=== PATIENT | male | born 1970 | race Caucasian/White ===

== ENCOUNTER 2017-11-08 15:01 | Emergency (ER) | payer SELFPAY ==
--- NOTE | 2017-11-08 16:07 | EDM.PDOC ---
ED HPI GENERAL MEDICAL PROBLEM - General Chief Complaint: Lower Extremity Injury/Pain Stated Complaint: PAIN LT FOOT Time Seen by Provider: 11/08/17 15:08 Source of Information: Reports: Patient History Limitations: Reports: No Limitations - History of Present Illness INITIAL COMMENTS - FREE TEXT/NARRATIVE: History of present illness: []Patient's had 6 month history of left ankle and heel pain. He denies any trauma but states his pain is worsening. Patient denies any redness the skin or fevers. Review of systems: As per history of present illness and below otherwise all systems reviewed and negative. Past medical history: As per history of present illness and as reviewed below otherwise noncontributory. Surgical history: As per history of present illness and as reviewed below otherwise noncontributory. Social history: No reported history of drug or alcohol abuse. Family history: As per history of present illness and as reviewed below otherwise noncontributory. Physical exam: General: Well developed, well nourished in NAD HEENT: Atraumatic, normocephalic, pupils reactive, negative for conjunctival pallor or scleral icterus, mucous membranes moist, throat clear, neck supple, nontender, trachea midline. Lungs: Clear to auscultation, breath sounds equal bilaterally, chest nontender. Heart: S1S2, regular, negative for clicks, rubs, or JVD. Abdomen: Soft, nondistended, nontender. Negative for masses or hepatosplenomegaly. Negative for costovertebral tenderness. Pelvis: Stable nontender. Genitourinary: Deferred. Rectal: Deferred. Extremities: Atraumatic, no gross deformities, left foot no swelling or skin changes. Tender to palpation of the heel negative for cords or calf pain. Neurovascular unremarkable. Neuro: Awake, alert, oriented. Cranial nerves II through XII unremarkable. Cerebellum unremarkable. Motor and sensory unremarkable throughout. Exam nonfocal. Diagnostics: []X-ray negative for fracture dislocation normal appearing bones Therapeutics: []Declined pain medicines Impression: []Chronic left foot pain Plan: []Follow-up with [facility] Dr Vu, D[facility] [address] [place] [phone] or primary care physician. Diclofenac for pain Definitive disposition and diagnosis as appropriate pending reevaluation and review of above. Left Feet Pain Score (Numeric/FACES): 8 - Related Data Allergies Allergy/AdvReac Type Severity Reaction Status Date / Time No Known Allergies Allergy Verified 11/08/17 15:36 Home Meds: Home Meds Diclofenac Sodium [IJD: Diclofenac Sodium] 75 mg PO .TWICE DAILY W MEALS PRN # 20 tab.ec 11/08/17 [Rx] Past Medical History - Past Health History Medical/Surgical History: Denies Medical/Surgical History Social & Family History - Family History Family Medical History: Noncontributory - Tobacco Use Smoking Status *Q: Current Every Day Smoker Years of Tobacco use: 27 Packs/Tins Daily: 0.5 - Caffeine Use Caffeine Use: Reports: None - Recreational Drug Use Recreational Drug Use: No Review of Systems - Review of Systems Review Of Systems: See Below (See history of present illness) ED EXAM, GENERAL - Physical Exam Exam: See Below (See history of present illness) Course - Vital Signs Last Recorded V/S: Last Vital Signs Temp 98.1 F 11/08/17 15:32 Pulse 84 11/08/17 15:32 Resp 20 11/08/17 15:32 BP 134/102 H 11/08/17 15:32 Pulse Ox 96 11/08/17 15:32 - Orders/Labs/Meds Orders: Active Orders 24 hr Category Date Time Status Foot 2V Lt [CR] Stat Exams 11/08/17 15:32 Taken Departure - Departure Time of Disposition: 16:06 Disposition: Home, Self-Care 01 Condition: Good Clinical Impression: Chronic pain in left foot - Discharge Information Prescriptions: Diclofenac Sodium [IJD: Diclofenac Sodium] 75 mg PO .TWICE DAILY W MEALS PRN # 20 tab.ec PRN Reason: Pain Referrals: PCP,None [Primary Care Provider] - Forms: ED Department Discharge Additional Instructions: The following information is given to patients seen in the emergency department who are being discharged to home. This information is to outline your options for follow-up care. We provide all patients seen in our emergency department with a follow-up referral. The need for follow-up, as well as the timing and circumstances, are variable depending upon the specifics of your emergency department visit. If you don't have a primary care physician on staff, we will provide you with a referral. We always advise you to contact your personal physician following an emergency department visit to inform them of the circumstance of the visit and for follow-up with them and/or the need for any referrals to a consulting specialist. The emergency department will also refer you to a specialist when appropriate. This referral assures that you have the opportunity for follow-up care with a specialist. All of these measure are taken in an effort to provide you with optimal care, which includes your follow-up. Under all circumstances we always encourage you to contact your private physician who remains a resource for coordinating your care. When calling for follow-up care, please make the office aware that this follow-up is from your recent emergency room visit. If for any reason you are refused follow-up, please contact the [facility] at and asked to speak to the emergency department charge nurse. Diclofenac for pain take as directed, ice for 20 minutes at a time, elevate foot. follow up with primary care next available appointment [facility] [address] [place] [id number] Can also follow-up with podiatry, learning operations specialist [facility] Dr Horace D[facility] [address] [place] [phone] - My Orders Last 24 Hours: My Active Orders 11/08/17 15:32 Foot 2V Lt [CR] Stat - Assessment/Plan Last 24 Hours: My Active Orders 11/08/17 15:32 Foot 2V Lt [CR] Stat
[2017-11-08 16:27] VITALS: BP 133/77
--- NOTE | 2017-11-10 15:56 | CR ---
EXAM DATE: 11/08/17 PATIENT'S AGE: 47 Patient: DELROY SOTO Facility: [place], [place] Site . Site : [id number] Study: XRay Extremity Left [id number]/[id number] 3:51:29 PM Ordering Physician: Lanre Ibarra Final Report: Indication: Left heel pain for 6 months. Technique: Two views of the left foot. Findings: The left foot is negative for fracture or dislocation. No erosion or intrinsic skeletal lesion. The calcaneus is within normal limits. Impression: Negative left foot. Negative left calcaneus. Dictated by Rajinder Gray MD @ Nov 08 2017 3:54PM (Electronic Signature) Report Signed by Proxy. LENY
== END 2017-11-08 16:24 | disposition home or self-care (01) ==
LOC: MW.ED 15:01
DX: M79.672 Pain in left foot (principal); G89.29 Other chronic pain; F17.210 Nicotine dependence, cigarettes, uncomplicated
CPT/HCPCS: 73620-26-LT; 73620-LT; 99283